=== PATIENT | male | born 1950 | race Caucasian/White ===

== ENCOUNTER 2016-08-14 19:32 | Emergency (ER) | payer OTHER ==
[2016-08-14] MEDS ORDERED: Lidocaine 2% 20ml Vial ONE (20:40)
--- NOTE | 2016-08-14 20:43 | Diagnostic Imaging Report ---
[facility] [address] [facility].[address] [address] Report Submission Date: Aug 14, 2016 8:20:19 PM MEDIA SENIOR RECRUITER Patient Study Name: NIRMAL LUCIO Date: Aug 14, 2016 8:09:37 PM MEDIA SENIOR RECRUITER Modality Type: CR Gender: M Description: UPPER EXTREMITY : 54 Institution: [facility] Physician: DEMIAN LEE Right 5th finger -three views CLINICAL HISTORY: Fall 1.5 hr ago. Injury. FINDINGS: Examination right 5th finger in palmar, lateral and oblique views demonstrates dislocation at the proximal interphalangeal joint with dorsal displacement and medial angulation of the middle phalanx relative to the proximal phalanx. There is no obvious fracture. IMPRESSION: Dorsal dislocation at the 5th proximal interphalangeal joint. Electronically signed on Aug 14, 2016 8:20:19 PM MEDIA SENIOR RECRUITER by: Ricardo CAVAZOS
[2016-08-14] MEDS ORDERED: Lidocaine 2% 20ml Vial IP ONE (20:53)
[2016-08-14 21:44] VITALS: BP 130/68
--- NOTE | 2016-08-16 01:50 | ED Physician Documentation ---
Hand Injury - HISTORIAN Historian: patient - HPI Stated Complaint: Right 5th Digit Injury Chief Complaint: Hand Injury Additional Information: fell hurt 5th finger right hand Onset: just prior to arrival Where: home Severity: moderate Duration: persistent since (fall) Context: fall Location of Injury: R hand Front/Back of Body, Lg ([place]): 1 - injury Modifying Factors: pain on movement Further Comments: no - ROS CONST: no problems GI/: denies: problems urinating, nausea, vomiting NEURO: none CVS/RESP: none EYES/ENT: none MS/SKIN/LYMPH: other (limited rom right 5th finger, dedformity) - PAST HX Past History: Rt handed, other (htn, depression) Immunizations: referred to PCP Allergies/Adverse Reactions: Allergies Allergy/AdvReac Type Severity Reaction Status Date / Time lacosamide [From Vimpat] Allergy Unknown Verified 08/14/16 20:02 Home Medications: Ambulatory Orders Medication Instructions Recorded Alpha Lipoic Acid 200 mg PO 6 tabs daily av 09/09/13 Ascorbic Acid [Vitamin C] 1,000 mg PO DAILY u2 09/09/13 Aspirin [Aspir 81] 81 mg PO DAILY u2 09/09/13 Astaxanthin 4 mg PO 2 tabs daily av 09/09/13 Beta-Carotene [Beta Carotene] 25,000 unit PO DAILY av 09/09/13 Biotin 2,500 mcg PO 8 tabs daily av 09/09/13 Buspirone Hcl 30 mg PO TID u2 09/09/13 Calcium Carbonate [Calcium] 600 mg PO DAILY u2 09/09/13 Carvedilol [Coreg] 12.5 mg PO BID u2 09/09/13 Cholecalciferol (Vitamin D3) 1,000 unit PO DAILY u2 09/09/13 [Vitamin D3] Cinnamon Bark [Cinnamon] 500 mg PO 8 tabs daily av 09/09/13 Cyanocobalamin (Vitamin B-12) 500 mcg PO DAILY u2 09/09/13 [Vitamin B-12] Fluvoxamine Maleate [Luvox Cr] 100 mg PO 3 tabs daily av 09/09/13 Furosemide [Lasix] 20 mg PO DAILY u2 09/09/13 Garlic 1,000 mg PO DAILY av 09/09/13 [place] [[place]] 500 mg PO 4 tabs daily av 09/09/13 Lamotrigine 200 mg PO 3.5 tab daily u2 09/09/13 Lutein 40 mg PO DAILY av 09/09/13 Lycopene 15 mg PO DAILY av 09/09/13 Magnesium Oxide [Magnesium] 500 mg PO DAILY av 09/09/13 Milk Thistle 500 mg PO 8 tabs daily av 09/09/13 Multivitamin [Multi Vitamin Daily] 1 each PO DAILY u2 09/09/13 Bradshaw-3 Fatty Acids [Fish Oil] 500 mg PO 2 tabs daily av 09/09/13 Paliperidone [Invega] 9 mg PO DAILY u2 09/09/13 Pantothenic Acid 500 mg PO DAILY u2 09/09/13 Phenytoin Sodium Extended 100 mg PO DAILY av 09/09/13 [Dilantin] Psyllium Husk [Psyllium Fiber] 0.52 gm PO 14 caps daily av 09/09/13 Resveratrol 250 mg PO DAILY av 09/09/13 Riboflavin [Vitamin B-2] 100 mg PO 10 tabs daily u2 09/09/13 Simvastatin [Zocor] 40 mg PO DAILY u2 09/09/13 Thiamine HCl [Vitamin B-1] 250 mg PO DAILY u2 09/09/13 Trazodone HCl 100 mg PO 2 tabs daily u2 09/09/13 Turmeric Root Extract [Turmeric] 500 mg PO 4 tabs daily av 09/09/13 Ubidecarenone [Coenzyme Q10] 100 mg PO DAILY av 09/09/13 Zinc Amino Acid Chelate [Zinc] 50 mg PO DAILY u2 09/09/13 - SOCIAL HX Smoking History: non-smoker Alcohol Use: none Drug Use: none - FAMILY HX Family History: no significant history - VITAL SIGNS Vital Signs: Vital Signs Temp Pulse Resp BP Pulse Ox 97.1 F L 72 18 130/68 98 08/14/16 19:35 08/14/16 21:15 08/14/16 21:15 08/14/16 21:15 08/14/16 21:15 - REVIEWED ASSESSMENTS Nursing Assessment Reviewed: Yes Vitals Reviewed: Yes Procedures Joint Reduction Site: other (right fifth finger) Conscious Sedation: No Reduction Attempts: 1 Pre-Procedure NV Exam: Yes Post Joint Reduction Film: joint reduced Progress - Results/Orders Results/Orders: x-ray right hand ordered - Progress Progress: pt's finger relocated successfully, full painless rom afterward Critical Care Note - Critical Care Note Total Time (mins): 0 ED Results Lab/Radiology - Lab Results Lab Results: none ordered - Radiology Radiology Impressions: x-ray shows no fx but dislocation at right 5th finger pip joint - Orders Orders: ED Orders Category Date Time Status FINGER 2 VIEWS OR MORE [RAD] Stat Exams 08/14/16 20:03 Completed Lidocaine 2% 20ml Vial [Xylocaine] Med 08/14/16 20:53 Discontinued 20 mg IP NOW ONE Lidocaine 2% 20ml Vial [Xylocaine] Med 08/14/16 20:40 Discontinued 400 mg .ROUTE .STK-MED ONE Hand Injury Physical Exam - Exam General Appearance: alert, moderate distress Hand: other (deformity right 5th finger) Wrist: normal inspection, non-tender, no evidence of injury, normal ROM Neuro: sensation nml, motor nml Vascular: no vascular compromise Tendons: tendon function nml Forearm/Elbow/Arm: uninjured above wrist Skin: warm/dry, normal color Head/ENT: nml inspection, pharynx nml Neck/Back: nml inspection, non-tender Resp/CVS: chest non-tender, breath sounds nml, heart sounds nml, no resp. distress, lungs clear, reg. rate & rhythm Abdomen: non-tender, no organomegaly, nml bowel sounds Discharge Clincal Impression: Dislocated finger Qualifiers: Encounter type: initial encounter Qualified Code(s): S63.259A - Unspecified dislocation of unspecified finger, initial encounter Referrals: Loly Pacheco MD [Primary Care Provider] - 2 Days Home Medications: Ambulatory Orders Alpha Lipoic Acid 200 mg PO 6 tabs daily av 09/09/13 Ascorbic Acid [Vitamin C] 1,000 mg PO DAILY u2 09/09/13 Aspirin [Aspir 81] 81 mg PO DAILY u2 09/09/13 Astaxanthin 4 mg PO 2 tabs daily av 09/09/13 Beta-Carotene [Beta Carotene] 25,000 unit PO DAILY av 09/09/13 Biotin 2,500 mcg PO 8 tabs daily av 09/09/13 Buspirone Hcl 30 mg PO TID u2 09/09/13 Calcium Carbonate [Calcium] 600 mg PO DAILY u2 09/09/13 Carvedilol [Coreg] 12.5 mg PO BID u2 09/09/13 Cholecalciferol (Vitamin D3) [Vitamin D3] 1,000 unit PO DAILY u2 09/09/13 Cinnamon Bark [Cinnamon] 500 mg PO 8 tabs daily av 09/09/13 Cyanocobalamin (Vitamin B-12) [Vitamin B-12] 500 mcg PO DAILY u2 09/09/13 Fluvoxamine Maleate [Luvox Cr] 100 mg PO 3 tabs daily av 09/09/13 Furosemide [Lasix] 20 mg PO DAILY u2 09/09/13 Garlic 1,000 mg PO DAILY av 09/09/13 [place] [[place]] 500 mg PO 4 tabs daily av 09/09/13 Lamotrigine 200 mg PO 3.5 tab daily u2 09/09/13 Lutein 40 mg PO DAILY av 09/09/13 Lycopene 15 mg PO DAILY av 09/09/13 Magnesium Oxide [Magnesium] 500 mg PO DAILY av 09/09/13 Milk Thistle 500 mg PO 8 tabs daily av 09/09/13 Multivitamin [Multi Vitamin Daily] 1 each PO DAILY u2 09/09/13 [place]-3 Fatty Acids [Fish Oil] 500 mg PO 2 tabs daily av 09/09/13 Paliperidone [Invega] 9 mg PO DAILY u2 09/09/13 Pantothenic Acid 500 mg PO DAILY u2 09/09/13 Phenytoin Sodium Extended [Dilantin] 100 mg PO DAILY av 09/09/13 Psyllium Husk [Psyllium Fiber] 0.52 gm PO 14 caps daily av 09/09/13 Resveratrol 250 mg PO DAILY av 09/09/13 Riboflavin [Vitamin B-2] 100 mg PO 10 tabs daily u2 09/09/13 Simvastatin [Zocor] 40 mg PO DAILY u2 09/09/13 Thiamine HCl [Vitamin B-1] 250 mg PO DAILY u2 09/09/13 Trazodone HCl 100 mg PO 2 tabs daily u2 09/09/13 Turmeric Root Extract [Turmeric] 500 mg PO 4 tabs daily av 09/09/13 Ubidecarenone [Coenzyme Q10] 100 mg PO DAILY av 09/09/13 Zinc Amino Acid Chelate [Zinc] 50 mg PO DAILY u2 09/09/13 Comments: pt. discharged with otc nsaids Condition: Stable Disposition: 01 HOME, SELF-CARE Decision to Admit: NO Decision Time: 21:10
== END 2016-08-14 21:15 | disposition home or self-care (01) ==
LOC: ED 19:32
DX: S63.259A Unspecified dislocation of unspecified finger, initial encounter (principal); W19.XXXA Unspecified fall, initial encounter; Y93.9 Activity, unspecified; Y99.9 Unspecified external cause status
CPT/HCPCS: 26770; 73140; 99283; 99284